=== PATIENT | female | born 1930 | race Asian ===

== ENCOUNTER 2016-06-23 15:36 | Emergency (ER) | payer OTHER ==
[~2016-06-23] VITALS: Ht 152.4 cm; Wt 46.4 kg
[~2016-06-23 15:36] MED LIST: AMLO-511 PO; CARB-101 PO; DSS100 PO; GABA-529 PO; HYDR-3965 PO; MULT1TAB PO; PRAM0.754 PO; ROSU20 PO; VALS160T2 PO
[2016-06-23] MEDS ORDERED: TraMADol HCL 50 MG TABLET PO ONE (19:00)
[2016-06-23 20:33] VITALS: BP 115/62
== END 2016-06-23 20:38 | disposition home or self-care (01) ==
LOC: EMS 15:41
DX: M17.12 Unilateral primary osteoarthritis, left knee (principal); I10 Essential (primary) hypertension; E78.00 Pure hypercholesterolemia, unspecified
CPT/HCPCS: 99283

== ENCOUNTER 2016-07-24 07:51 | Emergency (ER) | payer OTHER ==
[~2016-07-24] VITALS: Ht 152.4 cm; Wt 44.1 kg
[2016-07-24 08:18] VITALS: BP 140/69
[2016-07-24] MEDS ORDERED: TraMADol HCL 50 MG TABLET PO ONE (08:45)
[2016-07-24] MEDS ORDERED: KETOROLAC TROMETHAMINE 60 MG/2 ML VIAL IM ONE (08:45)
== END 2016-07-24 09:09 | disposition home or self-care (01) ==
LOC: EMS 07:54
DX: M17.12 Unilateral primary osteoarthritis, left knee (principal); I10 Essential (primary) hypertension; E78.00 Pure hypercholesterolemia, unspecified; Z76.0 Encounter for issue of repeat prescription
CPT/HCPCS: 96372; 99283; J1885

== ENCOUNTER → 2016-08-06 | Outpatient (CLI) | payer OTHER ==
[~2016-08-06] MED LIST changes: -AMLO-511 PO; -PRAM0.754 PO; -ROSU20 PO
== END | disposition home or self-care (01) ==
LOC: RADPV 08:56
PROVIDERS: ATTEND Internal Medicine
DX: M17.0 Bilateral primary osteoarthritis of knee (principal); M25.461 Effusion, right knee

== ENCOUNTER 2016-08-19 18:42 | Emergency (ER) | payer OTHER ==
[~2016-08-19] VITALS: Ht 152.4 cm; Wt 43.6 kg
[2016-08-19 21:37] VITALS: BP 143/77
[2016-08-19] MEDS ORDERED: OxyCODONE HCL/ACETAMINOPHEN 5-325 MG TABLET PO ONE (21:45)
== END 2016-08-19 22:53 | disposition home or self-care (01) ==
LOC: EMS 18:42
DX: M79.605 Pain in left leg (principal); I10 Essential (primary) hypertension; E78.00 Pure hypercholesterolemia, unspecified
CPT/HCPCS: 93971; 99284

== ENCOUNTER 2016-10-02 01:01 | Emergency (ER) | payer OTHER ==
[~2016-10-02] VITALS: Ht 152.4 cm; Wt 50.9 kg
[~2016-10-02 01:01] MED LIST changes: -HYDR-3965 PO
[2016-10-02 03:17] LABS: ADD UA MICROSCOPIC NO; APPEARANCE,URINE CLEAR (CLEAR); GLUCOSE, URINE (UA) NEGATIVE (NEGATIVE); KETONES,URINE NEGATIVE (NEGATIVE); LEUKOCYTE ESTERASE ,URINE NEGATIVE (NEGATIVE); OCCULT BLOOD,URINE NEGATIVE (NEGATIVE); PH,URINE 5.5 (5.0-8.0); PROTEIN,URINE POS 1+ (NEGATIVE)
[2016-10-02 03:26] LABS: BASOPHILS % (AUTO) 0.2 % (0.0-2.0); EOSINOPHILS % (AUTO) 0.2 % (1.0-6.0); HEMATOCRIT 27.8 % (36-46); HEMOGLOBIN 9.2 g/dL (12.0-16.0); LYMPHOCYTES # (AUTO) 0.9 K/uL (1.0-4.8); MEAN CORPUSCULAR HEMOGLOBIN 28.3 pg (26.0-34.0); MEAN CORPUSCULAR HGB CONC 33.1 G/dL (31.0-37.0); MEAN CORPUSCULAR VOLUME 86 fL (80-100); MONOCYTES # (AUTO) 0.5 K/uL (0.1-1.0); MONOCYTES % (AUTO) 4.4 % (2.0-9.0); NEUTROPHILS # (AUTO) 10.9 K/uL (1.8-7.7); PLATELET COUNT (AUTO) 383 K/uL (150-450); RED BLOOD CELL COUNT(AUTO) 3.24 MIL/uL (4.00-5.20); RED CELL DISTRIBUTION WIDTH 18.4 % (11.5-14.5); WHITE BLOOD COUNT (AUTO) 12.3 K/uL (4.5-11.0)
[2016-10-02 03:30] LABS: NEUTROPHILS % (AUTO) 88.2 % (40.0-70.0)
[2016-10-02 03:36] LABS: ANION GAP 8 mmol/L (8-16); CALCIUM, TOTAL 9.3 mg/dL (8.8-10.5); CARBON DIOXIDE 26 mmol/L (22-29); CHLORIDE 101 mmol/L (98-107); CREATININE 0.93 mg/dL (0.60-1.30); GLOMERULAR FILTR. RATE CALC 57 mL/min (>60); POTASSIUM 3.8 mmol/L (3.5-5.1); SODIUM SERUM 135 mmol/L (136-145); UREA NITROGEN, BLOOD 22 mg/dL (7-18)
[2016-10-02 03:42] LABS: ALANINE AMINOTRANSFERASE 8 U/L (12-78); ASPARTATE AMINOTRANSFERASE 32 U/L (15-37); BILIRUBIN,TOTAL 0.4 mg/dL (0.1-1.0); CREATINE KINASE, TOTAL 39 U/L (26-192); TOTAL PROTEIN, SERUM 7.7 g/dL (6.4-8.2)
[2016-10-02] MEDS ORDERED: ACETAMINOPHEN 1000 MG/ISO-OSM 100 ML IV ONE (03:45)
[2016-10-02] MEDS ORDERED: SODIUM CHLORIDE 0.9% 1,000 ML IV ONE ×2 (03:45→04:45)
[2016-10-02 03:48] LABS: B-TYPE NATRIURETIC PEPTIDE 27 pg/mL (0-100)
[2016-10-02] MEDS ORDERED: MORPHINE SULFATE 4 MG/ML SYRINGE IVP ONE (04:00)
[2016-10-02] MEDS ORDERED: ONDANSETRON HCL 4 MG/2 ML VIAL IVP ONE (04:00)
[2016-10-02 05:55] VITALS: BP 121/67
== END 2016-10-02 05:59 | disposition home or self-care (01) ==
LOC: EMS 01:03
DX: R10.84 Generalized abdominal pain (principal); R19.7 Diarrhea, unspecified; E78.00 Pure hypercholesterolemia, unspecified; I10 Essential (primary) hypertension
CPT/HCPCS: 36415; 71010; 80053; 80307; 81003; 82550; 83880; 84484; 85025; 93005; 96361; 96374; 96375; 99285; J0131; J2270; J2405; J7030

== ENCOUNTER 2017-01-14 18:41 | Emergency (ER) | payer OTHER ==
[~2017-01-14] VITALS: Ht 142.2 cm; Wt 42.7 kg
[2017-01-14 19:12] LABS: BASOPHILS % (AUTO) 1.1 % (0.0-2.0); EOSINOPHILS % (AUTO) 2.9 % (1.0-6.0); HEMATOCRIT 29.3 % (36-46); HEMOGLOBIN 9.8 g/dL (12.0-16.0); LYMPHOCYTES # (AUTO) 1.6 K/uL (1.0-4.8); LYMPHOCYTES % (AUTO) 25.8 % (22.0-44.0); MEAN CORPUSCULAR HEMOGLOBIN 28.9 pg (26.0-34.0); MEAN CORPUSCULAR HGB CONC 33.3 G/dL (31.0-37.0); MEAN CORPUSCULAR VOLUME 87 fL (80-100); MONOCYTES # (AUTO) 0.5 K/uL (0.1-1.0); MONOCYTES % (AUTO) 8.9 % (2.0-9.0); NEUTROPHILS # (AUTO) 3.7 K/uL (1.8-7.7); NEUTROPHILS % (AUTO) 61.3 % (40.0-70.0); PLATELET COUNT (AUTO) 422 K/uL (150-450); RED BLOOD CELL COUNT(AUTO) 3.38 MIL/uL (4.00-5.20); RED CELL DISTRIBUTION WIDTH 18.8 % (11.5-14.5); WHITE BLOOD COUNT (AUTO) 6.1 K/uL (4.5-11.0)
[2017-01-14 19:35] LABS: RBC MORPHOLOGY COMMENT ABNORMAL RBC MORPH
[2017-01-14 20:33] LABS: ANION GAP 10 mmol/L (8-16); CALCIUM, TOTAL 9.4 mg/dL (8.8-10.5); CARBON DIOXIDE 27 mmol/L (22-29); CHLORIDE 104 mmol/L (98-107); CREATININE 0.72 mg/dL (0.60-1.30); GLOMERULAR FILTR. RATE CALC > 60 mL/min (>60); POTASSIUM 4.2 mmol/L (3.5-5.1); SODIUM SERUM 141 mmol/L (136-145); UREA NITROGEN, BLOOD 21 mg/dL (7-18)
[2017-01-14 20:41] LABS: ALANINE AMINOTRANSFERASE 25 U/L (12-78); ALBUMIN 3.2 g/dL (3.4-5.0); ASPARTATE AMINOTRANSFERASE 27 U/L (15-37); BILIRUBIN,TOTAL 0.2 mg/dL (0.1-1.0); CREATINE KINASE, TOTAL 43 U/L (26-192); TOTAL PROTEIN, SERUM 8.4 g/dL (6.4-8.2)
[2017-01-14] MEDS ORDERED: ACETAMINOPHEN 325 MG TABLET PO ONE (21:00)
[2017-01-14 21:30] LABS: APPEARANCE,URINE CLOUDY (CLEAR); GLUCOSE, URINE (UA) NEGATIVE (NEGATIVE); KETONES,URINE NEGATIVE (NEGATIVE); LEUKOCYTE ESTERASE ,URINE TRACE (NEGATIVE); OCCULT BLOOD,URINE TRACE (NEGATIVE); PROTEIN,URINE NEGATIVE (NEGATIVE)
[2017-01-14 21:34] LABS: ADD UA MICROSCOPIC YES
[2017-01-14 21:43] LABS: RBC,URINE 0-2 /HPF (0-2); SQUAMOUS EPITHELIAL CELL,UR Few /LPF (None Seen)
[2017-01-14 22:00] VITALS: BP 133/72
[2017-03-01] MEDS ORDERED: TYL3B PO (07:53)
[2017-03-01] MEDS ORDERED: DSS100 PO (07:53)
[2017-03-01] MEDS ORDERED: TRAM50TA4 PO (07:53)
[2017-03-01] MEDS ORDERED: AMLO-511 PO (07:53)
[2017-03-01] MEDS ORDERED: BENZ200C53 PO (07:53)
[2017-03-01] MEDS ORDERED: QUET25TA PO (07:53)
[2017-03-01] MEDS ORDERED: DULO30CA2 PO (07:53)
[2017-03-01] MEDS ORDERED: PRAM0.258 PO (07:53)
[2017-03-01] MEDS ORDERED: MONT10TA21 PO (07:53)
[2017-03-01] MEDS ORDERED: VALS160T2 PO (07:53)
[2017-03-01] MEDS ORDERED: CARB-38 PO (07:53)
== END 2017-01-14 22:34 | disposition home or self-care (01) ==
LOC: EMS 18:43
DX: G89.29 Other chronic pain (principal); M25.462 Effusion, left knee; N39.0 Urinary tract infection, site not specified; E78.00 Pure hypercholesterolemia, unspecified; I10 Essential (primary) hypertension; M19.90 Unspecified osteoarthritis, unspecified site
CPT/HCPCS: 70450; 87086; 93005; 93971; 99285

== ENCOUNTER 2017-02-13 07:42 | Emergency (ER) | payer MEDICARE, OTHER ==
[~2017-02-13] VITALS: Ht 152.4 cm; Wt 45.5 kg
[2017-02-13] MEDS ORDERED: HYDROCODONE/ACETAMINOPHEN 5-325 MG TABLET PO ONE (11:00)
[2017-02-13] MEDS ORDERED: LIDOCAINE HCL/PF 1% 2 ML VIAL IM ONE (12:15)
[2017-02-13] MEDS ORDERED: CefTRIAXone SODIUM 1 GM/VIAL IM ONE (12:15)
[2017-02-13 14:39] VITALS: BP 145/88
[2017-03-01] MEDS ORDERED: QUET25TA PO (07:53)
[2017-03-01] MEDS ORDERED: PRAM0.258 PO (07:53)
[2017-03-01] MEDS ORDERED: CARB-38 PO (07:53)
[2017-03-01] MEDS ORDERED: DULO30CA2 PO (07:53)
[2017-03-01] MEDS ORDERED: DSS100 PO (07:53)
[2017-03-01] MEDS ORDERED: AMLO-511 PO (07:53)
[2017-03-01] MEDS ORDERED: TYL3B PO (07:53)
[2017-03-01] MEDS ORDERED: TRAM50TA4 PO (07:53)
[2017-03-01] MEDS ORDERED: VALS160T2 PO (07:53)
[2017-03-01] MEDS ORDERED: MONT10TA21 PO (07:53)
[2017-03-01] MEDS ORDERED: BENZ200C53 PO (07:53)
[2017-03-30] MEDS ORDERED: ACET-784 PO (11:30)
[2017-03-30] MEDS ORDERED: BENZ200C53 PO (20:54)
[2017-03-30] MEDS ORDERED: QUET25TA PO (20:54)
[2017-03-30] MEDS ORDERED: CARB-38 PO (20:54)
[2017-03-30] MEDS ORDERED: TRAM50TA4 PO (20:54)
[2017-03-30] MEDS ORDERED: MONT10TA21 PO (20:54)
[2017-03-30] MEDS ORDERED: PRAM0.258 PO (20:54)
[2017-03-30] MEDS ORDERED: VALS160T2 PO (20:54)
[2017-03-30] MEDS ORDERED: TYL3B PO (20:54)
[2017-03-30] MEDS ORDERED: AMLO-511 PO (20:54)
[2017-03-30] MEDS ORDERED: DSS100 PO (20:54)
[2017-03-30] MEDS ORDERED: DULO30CA2 PO (20:54)
== END 2017-02-13 14:56 | disposition home or self-care (01) ==
LOC: EMS 07:44
DX: S83.92XA Sprain of unspecified site of left knee, initial encounter (principal); N39.0 Urinary tract infection, site not specified; M54.5 Low back pain; M25.552 Pain in left hip; M19.90 Unspecified osteoarthritis, unspecified site; I10 Essential (primary) hypertension; E78.00 Pure hypercholesterolemia, unspecified; G89.29 Other chronic pain; X58.XXXA Exposure to other specified factors, initial encounter; Y93.89 Activity, other specified; Y92.89 Other specified places as the place of occurrence of the external cause; Y99.8 Other external cause status
CPT/HCPCS: 72100; 72131; 73503; 73562; 81002; 96372; 99284; J0696; J3490

== ENCOUNTER 2017-02-14 13:29 | Emergency (ER) | payer MEDICARE, OTHER ==
[~2017-02-14] VITALS: Ht 152.4 cm; Wt 45.5 kg
[2017-02-14 14:24] VITALS: BP 142/109
[2017-03-01] MEDS ORDERED: AMLO-511 PO (07:53)
[2017-03-01] MEDS ORDERED: VALS160T2 PO (07:53)
[2017-03-01] MEDS ORDERED: MONT10TA21 PO (07:53)
[2017-03-01] MEDS ORDERED: DSS100 PO (07:53)
[2017-03-01] MEDS ORDERED: TRAM50TA4 PO (07:53)
[2017-03-01] MEDS ORDERED: PRAM0.258 PO (07:53)
[2017-03-01] MEDS ORDERED: DULO30CA2 PO (07:53)
[2017-03-01] MEDS ORDERED: BENZ200C53 PO (07:53)
[2017-03-01] MEDS ORDERED: QUET25TA PO (07:53)
[2017-03-01] MEDS ORDERED: CARB-38 PO (07:53)
[2017-03-01] MEDS ORDERED: TYL3B PO (07:53)
== END 2017-02-14 16:17 | disposition left against medical advice (07) ==
LOC: EMS 13:55
DX: M25.559 Pain in unspecified hip (principal); I10 Essential (primary) hypertension; E78.00 Pure hypercholesterolemia, unspecified; G89.29 Other chronic pain; Z53.21 Procedure and treatment not carried out due to patient leaving prior to being seen by health care provider

== ENCOUNTER 2017-02-21 10:38 | Emergency (ER) | payer OTHER, MEDICARE ==
[~2017-02-21] VITALS: Ht 149.9 cm; Wt 59.1 kg
[2017-02-21] MEDS ORDERED: TraMADol HCL 50 MG TABLET PO ONE ×2 (11:45→13:00)
[2017-02-21 12:12] LABS: APPEARANCE,URINE CLEAR (CLEAR); BILIRUBIN,URINE NEGATIVE (NEGATIVE); GLUCOSE, URINE (UA) NEGATIVE (NEGATIVE); KETONES,URINE NEGATIVE (NEGATIVE); LEUKOCYTE ESTERASE ,URINE NEGATIVE (NEGATIVE); NITRATE,URINE NEGATIVE (NEGATIVE); OCCULT BLOOD,URINE NEGATIVE (NEGATIVE); PH,URINE 5.5 (5.0-8.0); PROTEIN,URINE NEGATIVE (NEGATIVE); UROBILINOGEN,URINE 0.2 mg/dL (<=1.0)
[2017-02-21 13:20] VITALS: BP 116/82
[2017-03-01] MEDS ORDERED: DSS100 PO (07:53)
[2017-03-01] MEDS ORDERED: TRAM50TA4 PO (07:53)
[2017-03-01] MEDS ORDERED: DULO30CA2 PO (07:53)
[2017-03-01] MEDS ORDERED: MONT10TA21 PO (07:53)
[2017-03-01] MEDS ORDERED: CARB-38 PO (07:53)
[2017-03-01] MEDS ORDERED: VALS160T2 PO (07:53)
[2017-03-01] MEDS ORDERED: QUET25TA PO (07:53)
[2017-03-01] MEDS ORDERED: PRAM0.258 PO (07:53)
[2017-03-01] MEDS ORDERED: TYL3B PO (07:53)
[2017-03-01] MEDS ORDERED: AMLO-511 PO (07:53)
[2017-03-01] MEDS ORDERED: BENZ200C53 PO (07:53)
== END 2017-02-21 13:28 | disposition home or self-care (01) ==
LOC: EMS 10:41
DX: M54.5 Low back pain (principal); G89.29 Other chronic pain; I10 Essential (primary) hypertension; E78.00 Pure hypercholesterolemia, unspecified
CPT/HCPCS: 99283

== ENCOUNTER 2017-04-05 21:08 | Emergency (ER) | payer OTHER ==
[~2017-04-05] VITALS: Ht 147.3 cm; Wt 56.8 kg
[~2017-04-05 21:08] MED LIST changes: +ACET-784 PO; +AMLO-511 PO; +BENZ200C53 PO; -CARB-101 PO; +CARB-38 PO; +DULO30CA2 PO; -GABA-529 PO; +MONT10TA21 PO; -MULT1TAB PO; +PRAM0.258 PO; +QUET25TA PO; +TRAM50TA4 PO; +TYL3B PO
[2017-04-05] MEDS ORDERED: HYDR-3290 PO (21:50)
[2017-04-05] MEDS ORDERED: PRAM1.5T7 PO (21:50)
[2017-04-05] MEDS ORDERED: BACL10TA PO (21:50)
[2017-04-05] MEDS ORDERED: VALS320T16 PO (21:50)
[2017-04-05] MEDS ORDERED: MONT10TA21 PO (21:50)
[2017-04-06] MEDS: HYDROCODONE/ACETAMINOPHEN 5-325 MG TABLET PO ONE ×2 (00:18→06:03)
[2017-04-06] MEDS: BACLOFEN 10 MG TABLET PO ONE (00:19)
[2017-04-06 06:13] VITALS: BP 123/67
== END 2017-04-06 00:45 | disposition home or self-care (01) ==
LOC: EMS 21:09
DX: G89.29 Other chronic pain (principal); M54.5 Low back pain; G20 Parkinson's disease; Z91.14 Patient's other noncompliance with medication regimen
CPT/HCPCS: 99284

== ENCOUNTER 2017-05-19 20:32 | Emergency (ER) | payer OTHER ==
[~2017-05-19] VITALS: Ht 149.9 cm; Wt 45.5 kg
[~2017-05-19 20:32] MED LIST changes: -ACET-784 PO; -AMLO-511 PO; +BACL10TA PO; -BENZ200C53 PO; -CARB-38 PO; -DSS100 PO; -DULO30CA2 PO; +HYDR-3290 PO; -PRAM0.258 PO; +PRAM1.5T7 PO; -QUET25TA PO; -TRAM50TA4 PO; -TYL3B PO; -VALS160T2 PO; +VALS320T16 PO
[2017-05-19] MEDS ORDERED: HYDROCODONE/ACETAMINOPHEN 5-325 MG TABLET PO ONE (22:00)
[2017-05-19 22:22] VITALS: BP 105/61
== END 2017-05-19 22:51 | disposition home or self-care (01) ==
LOC: EMS 20:33
DX: M16.0 Bilateral primary osteoarthritis of hip (principal)
CPT/HCPCS: 99283

== ENCOUNTER 2017-05-26 23:45 | Emergency (ER) | payer OTHER ==
[~2017-05-26] VITALS: Ht 152.4 cm; Wt 44.1 kg
[2017-05-27 00:30] LABS: BASOPHILS % (AUTO) 0.4 % (0.0-2.0); EOSINOPHILS % (AUTO) 0.7 % (1.0-6.0); HEMATOCRIT 28.6 % (36-46); HEMOGLOBIN 9.3 g/dL (12.0-16.0); LYMPHOCYTES # (AUTO) 2.4 K/uL (1.0-4.8); LYMPHOCYTES % (AUTO) 26.1 % (22.0-44.0); MEAN CORPUSCULAR HEMOGLOBIN 29.2 pg (26.0-34.0); MEAN CORPUSCULAR HGB CONC 32.4 G/dL (31.0-37.0); MEAN CORPUSCULAR VOLUME 90 fL (80-100); MONOCYTES # (AUTO) 0.7 K/uL (0.1-1.0); MONOCYTES % (AUTO) 8.2 % (2.0-9.0); NEUTROPHILS # (AUTO) 5.9 K/uL (1.8-7.7); NEUTROPHILS % (AUTO) 64.6 % (40.0-70.0); PLATELET COUNT (AUTO) 342 K/uL (150-450); RED BLOOD CELL COUNT(AUTO) 3.17 MIL/uL (4.00-5.20); RED CELL DISTRIBUTION WIDTH 21.8 % (11.5-14.5)
[2017-05-27 00:38] LABS: ANION GAP 6 mmol/L (8-16); CARBON DIOXIDE 26 mmol/L (22-29); CHLORIDE 105 mmol/L (98-107); CREATININE 0.76 mg/dL (0.60-1.30); GLOMERULAR FILTR. RATE CALC > 60 mL/min (>60); GLUCOSE,RANDOM 114 mg/dL (70-110); POTASSIUM 4.1 mmol/L (3.5-5.1); SODIUM SERUM 137 mmol/L (136-145); UREA NITROGEN, BLOOD 21 mg/dL (7-18)
[2017-05-27 00:40] LABS: INR 0.9 (0.9-1.1); PROTHROMBIN TIME 9.5 SEC (9.4-11.6)
[2017-05-27 00:44] LABS: ALANINE AMINOTRANSFERASE 12 U/L (12-78); ALBUMIN 3.2 g/dL (3.4-5.0); ALKALINE PHOSPHATASE 121 U/L (46-116); ASPARTATE AMINOTRANSFERASE 27 U/L (15-37); BILIRUBIN,TOTAL 0.2 mg/dL (0.1-1.0); CREATINE KINASE, TOTAL 29 U/L (26-192); TOTAL PROTEIN, SERUM 7.4 g/dL (6.4-8.2)
[2017-05-27 01:14] LABS: APPEARANCE,URINE CLEAR (CLEAR); BILIRUBIN,URINE NEGATIVE (NEGATIVE); GLUCOSE, URINE (UA) NEGATIVE (NEGATIVE); KETONES,URINE NEGATIVE (NEGATIVE); LEUKOCYTE ESTERASE ,URINE SMALL (NEGATIVE); NITRATE,URINE NEGATIVE (NEGATIVE); OCCULT BLOOD,URINE NEGATIVE (NEGATIVE); PROTEIN,URINE NEGATIVE (NEGATIVE); UROBILINOGEN,URINE 0.2 mg/dL (<=1.0)
[2017-05-27] MEDS ORDERED: FentaNYL CITRATE-PF 100 MCG/2 ML VIAL IVP ONE (01:15)
[2017-05-27] MEDS ORDERED: ONDANSETRON HCL 4 MG/2 ML VIAL IVP PRN (01:15)
[2017-05-27] MEDS ORDERED: 0.9% SODIUM CHLORIDE 10 ML SYRINGE IVP PRN (01:15)
[2017-05-27] MEDS ORDERED: ACETAMINOPHEN 325 MG TABLET PO PRN (01:15)
[2017-05-27 01:19] LABS: AMPHET/METH SCREEN,URINE NEGATIVE (NEGATIVE); BARBITURATE SCREEN, URINE NEGATIVE (NEGATIVE); BENZODIAZEPINES SCREEN,URINE NEGATIVE (NEGATIVE); CANNABINOID SCREEN,URINE NEGATIVE (NEGATIVE); COCAINE SCREEN,URINE NEGATIVE (NEGATIVE); METHADONE SCREEN, URINE NEGATIVE (NEGATIVE); OPIATE SCREEN,URINE NEGATIVE (NEGATIVE)
[2017-05-27 01:21] LABS: PHENCYCLIDINE SCREEN,URINE NEGATIVE (NEGATIVE)
[2017-05-27] MEDS ORDERED: FentaNYL CITRATE-PF 100 MCG/2 ML VIAL IM ONE (01:30)
[2017-05-27 01:34] LABS: BACTERIA,URINE Rare /HPF (None Seen); RBC,URINE 0-2 /HPF (0-2); SQUAMOUS EPITHELIAL CELL,UR Rare /LPF (None Seen)
[2017-05-27 01:36] VITALS: BP 118/57
[2017-05-27] MEDS ORDERED: ALBUTEROL SULFATE 2.5 MG/0.5 ML NEB SOLUTION NEB SCH (03:00)
[2017-05-27] MEDS ORDERED: IPRATROPIUM BROMIDE 0.5 MG/2.5 ML NEB SOLUTION NEB SCH (03:00)
== END 2017-05-27 01:39 | disposition home or self-care (01) ==
LOC: EMS 23:47
DX: M19.90 Unspecified osteoarthritis, unspecified site (principal); R53.1 Weakness
CPT/HCPCS: 36415; 71045; 80053; 80307; 81001; 82550; 84484; 85025; 85610; 85730; 93005; 96372; 99285; J3010

== ENCOUNTER 2017-06-15 11:26 | Inpatient (IN) | payer MEDICARE, OTHER ==
[2017-06-15] VITALS (11 sets, daily range): BP systolic 91–126; BP diastolic 40–63
[~2017-06-15] VITALS: Ht 149.9 cm; Wt 42.6 kg
[2017-06-15 11:37] LABS: GLUCOSE,POINT OF CARE 172 MG/DL (70-110)
[2017-06-15] MEDS ORDERED: SODIUM CHLORIDE 0.9% 1,000 ML IV ONE ×2 (11:45→11:49)
[2017-06-15 12:15] LABS: BASOPHILS % (AUTO) 0.3 % (0.0-2.0); EOSINOPHILS % (AUTO) 0.2 % (1.0-6.0); LYMPHOCYTES # (AUTO) 2.1 K/uL (1.0-4.8); LYMPHOCYTES % (AUTO) 14.6 % (22.0-44.0); MEAN CORPUSCULAR HEMOGLOBIN 29.9 pg (26.0-34.0); MEAN CORPUSCULAR HGB CONC 33.2 G/dL (31.0-37.0); MEAN CORPUSCULAR VOLUME 90 fL (80-100); MONOCYTES # (AUTO) 0.7 K/uL (0.1-1.0); MONOCYTES % (AUTO) 4.8 % (2.0-9.0); NEUTROPHILS # (AUTO) 11.6 K/uL (1.8-7.7); NEUTROPHILS % (AUTO) 80.1 % (40.0-70.0); PLATELET COUNT (AUTO) 297 K/uL (150-450); RED BLOOD CELL COUNT(AUTO) 1.63 MIL/uL (4.00-5.20)
[2017-06-15 12:17] LABS: PROTHROMBIN TIME 10.4 SEC (9.4-11.6)
[2017-06-15 12:19] LABS: ANION GAP 6 mmol/L (8-16); CALCIUM, TOTAL 8.2 mg/dL (8.8-10.5); CARBON DIOXIDE 24 mmol/L (22-29); CHLORIDE 102 mmol/L (98-107); CREATININE 1.31 mg/dL (0.60-1.30); GLOMERULAR FILTR. RATE CALC 38 mL/min (>60); GLUCOSE,RANDOM 152 mg/dL (70-110); HEMATOCRIT 14.6 % (36-46); HEMOGLOBIN 4.9 g/dL (12.0-16.0); POTASSIUM 5.8 mmol/L (3.5-5.1); SODIUM SERUM 132 mmol/L (136-145); UREA NITROGEN, BLOOD 59 mg/dL (7-18)
[2017-06-15] MEDS ORDERED: PANTOPRAZOLE SODIUM 40 MG/VIAL IVP ONE (12:30)
[2017-06-15] MEDS ORDERED: PANTOPRAZOLE SODIUM 80 MG in SODIUM CHLORIDE 0.9% 100 ML IV SCH (12:30)
[2017-06-15 12:33] LABS: B-TYPE NATRIURETIC PEPTIDE 8 pg/mL (0-100)
[2017-06-15 12:34] LABS: ALANINE AMINOTRANSFERASE 12 U/L (12-78); ALBUMIN 2.1 g/dL (3.4-5.0); ALKALINE PHOSPHATASE 105 U/L (46-116); ASPARTATE AMINOTRANSFERASE 18 U/L (15-37); BILIRUBIN,TOTAL 0.1 mg/dL (0.1-1.0); LIPASE 160 U/L (73-393); TOTAL PROTEIN, SERUM 5.9 g/dL (6.4-8.2)
[2017-06-15 12:38] LABS: LACTIC ACID 2.6 mmol/L (0.4-2.0)
[2017-06-15 12:51] LABS: PLATELET MORPHOLOGY COMMENT LARGE PLTS PRESENT
[2017-06-15] MEDS ORDERED: 0.9% SODIUM CHLORIDE 10 ML SYRINGE IVP PRN (13:45)
[2017-06-15] MEDS ORDERED: ONDANSETRON HCL 4 MG/2 ML VIAL IVP PRN ×2 (13:45→21:00)
[2017-06-15] MEDS ORDERED: ACETAMINOPHEN 325 MG TABLET PO PRN (13:45)
[2017-06-15 13:47] LABS: GLUCOSE,POINT OF CARE 103 MG/DL (70-110)
[2017-06-15] MEDS ORDERED: CIPROFLOXACIN 400 MG/D5% WATER 200 ML IV ONE (14:00)
[2017-06-15] MEDS ORDERED: FentaNYL CITRATE-PF 100 MCG/2 ML VIAL IVP ONE (14:00)
[2017-06-15] MEDS ORDERED: MetroNIDAZOLE 250 MG TABLET PO ONE (14:00)
[2017-06-15 15:05] LABS: APPEARANCE,URINE CLEAR (CLEAR); BILIRUBIN,URINE NEGATIVE (NEGATIVE); GLUCOSE, URINE (UA) NEGATIVE (NEGATIVE); KETONES,URINE NEGATIVE (NEGATIVE); LEUKOCYTE ESTERASE ,URINE NEGATIVE (NEGATIVE); NITRATE,URINE NEGATIVE (NEGATIVE); OCCULT BLOOD,URINE NEGATIVE (NEGATIVE); PROTEIN,URINE NEGATIVE (NEGATIVE); UROBILINOGEN,URINE 0.2 mg/dL (<=1.0)
[2017-06-15 15:19] LABS: BACTERIA,URINE None Seen /HPF (None Seen); RBC,URINE None Seen /HPF (0-2); SQUAMOUS EPITHELIAL CELL,UR Rare /LPF (None Seen); WBC,URINE 0-2 /HPF (0-5)
[2017-06-15] MEDS ORDERED: DEXTROSE 5%-0.45% SODIUM CHL 1,000 ML IV SCH (16:30)
[2017-06-15] MEDS ORDERED: INSULIN REGULAR, HUMAN 100 UNITS/ML IVP ONE (16:30)
[2017-06-15] MEDS ORDERED: DEXTROSE 50%-WATER 25 GM/50 ML SYRINGE IVP ONE (16:30)
[2017-06-15] MEDS ORDERED: SODIUM CHLORIDE 0.9% 250 ML IV ONE (16:36)
[2017-06-15 20:06] LABS: BASOPHILS % (AUTO) 0.3 % (0.0-2.0); EOSINOPHILS % (AUTO) 0.5 % (1.0-6.0); HEMATOCRIT 22.5 % (36-46); HEMOGLOBIN 7.6 g/dL (12.0-16.0); LYMPHOCYTES # (AUTO) 2.9 K/uL (1.0-4.8); LYMPHOCYTES % (AUTO) 20.7 % (22.0-44.0); MEAN CORPUSCULAR HEMOGLOBIN 29.9 pg (26.0-34.0); MEAN CORPUSCULAR HGB CONC 33.9 G/dL (31.0-37.0); MEAN CORPUSCULAR VOLUME 88 fL (80-100); MONOCYTES # (AUTO) 1.2 K/uL (0.1-1.0); MONOCYTES % (AUTO) 8.8 % (2.0-9.0); NEUTROPHILS # (AUTO) 9.6 K/uL (1.8-7.7); NEUTROPHILS % (AUTO) 69.7 % (40.0-70.0); PLATELET COUNT (AUTO) 222 K/uL (150-450); RED BLOOD CELL COUNT(AUTO) 2.55 MIL/uL (4.00-5.20); RED CELL DISTRIBUTION WIDTH 16.3 % (11.5-14.5)
[2017-06-15] MEDS ORDERED: PROMETH/PHENYLEPHRINE/CODEINE 5 ML ORAL.SYG PO PRN (20:15)
[2017-06-15 20:18] LABS: ALANINE AMINOTRANSFERASE 13 U/L (12-78); ALBUMIN 1.8 g/dL (3.4-5.0); ALKALINE PHOSPHATASE 91 U/L (46-116); ANION GAP 8 mmol/L (8-16); ASPARTATE AMINOTRANSFERASE 20 U/L (15-37); BILIRUBIN,TOTAL 0.4 mg/dL (0.1-1.0); CALCIUM, TOTAL 7.5 mg/dL (8.8-10.5); CARBON DIOXIDE 21 mmol/L (22-29); CHLORIDE 109 mmol/L (98-107); CREATININE 0.84 mg/dL (0.60-1.30); GLOMERULAR FILTR. RATE CALC > 60 mL/min (>60); GLUCOSE,RANDOM 80 mg/dL (70-110); POTASSIUM 4.9 mmol/L (3.5-5.1); SODIUM SERUM 138 mmol/L (136-145); TOTAL PROTEIN, SERUM 5.1 g/dL (6.4-8.2); UREA NITROGEN, BLOOD 42 mg/dL (7-18)
[2017-06-15] MEDS: PANTOPRAZOLE SODIUM 80 MG in SODIUM CHLORIDE 0.9% 100 ML IV SCH (20:42)
[2017-06-15] MEDS: PROMETHAZINE HCL/CODEINE 6.25-10MG/5ML SYRUP UDCUP PO PRN (21:26)
[2017-06-15] MEDS: SODIUM CHLORIDE 0.45% 1,000 ML IV SCH (21:43)
[2017-06-16] VITALS (8 sets, daily range): BP systolic 94–138; BP diastolic 50–76
[2017-06-16] MEDS: MORPHINE SULFATE 4 MG/ML SYRINGE IVP PRN ×3 (00:22→20:15)
[2017-06-16 04:59] LABS: BASOPHILS % (AUTO) 0.6 % (0.0-2.0); EOSINOPHILS % (AUTO) 1.7 % (1.0-6.0); HEMOGLOBIN 7.2 g/dL (12.0-16.0); LYMPHOCYTES % (AUTO) 21.8 % (22.0-44.0); MEAN CORPUSCULAR HEMOGLOBIN 30.7 pg (26.0-34.0); MEAN CORPUSCULAR HGB CONC 35.2 G/dL (31.0-37.0); MEAN CORPUSCULAR VOLUME 87 fL (80-100); MONOCYTES # (AUTO) 0.7 K/uL (0.1-1.0); MONOCYTES % (AUTO) 7.7 % (2.0-9.0); NEUTROPHILS # (AUTO) 6.4 K/uL (1.8-7.7); NEUTROPHILS % (AUTO) 68.2 % (40.0-70.0); PLATELET COUNT (AUTO) 215 K/uL (150-450); RED BLOOD CELL COUNT(AUTO) 2.36 MIL/uL (4.00-5.20); RED CELL DISTRIBUTION WIDTH 16.3 % (11.5-14.5)
[2017-06-16 05:10] LABS: ALANINE AMINOTRANSFERASE 17 U/L (12-78); ALBUMIN 1.6 g/dL (3.4-5.0); ALKALINE PHOSPHATASE 81 U/L (46-116); ANION GAP 3 mmol/L (8-16); ASPARTATE AMINOTRANSFERASE 16 U/L (15-37); BILIRUBIN,TOTAL 0.2 mg/dL (0.1-1.0); CALCIUM, TOTAL 7.7 mg/dL (8.8-10.5); CARBON DIOXIDE 24 mmol/L (22-29); CHLORIDE 110 mmol/L (98-107); CREATININE 0.75 mg/dL (0.60-1.30); GLOMERULAR FILTR. RATE CALC > 60 mL/min (>60); GLUCOSE,RANDOM 94 mg/dL (70-110); POTASSIUM 5.3 mmol/L (3.5-5.1); SODIUM SERUM 137 mmol/L (136-145); TOTAL PROTEIN, SERUM 4.8 g/dL (6.4-8.2); UREA NITROGEN, BLOOD 31 mg/dL (7-18)
[2017-06-16 06:07] LABS: HEMATOCRIT 20.6 % (36-46)
[2017-06-16] MEDS: PANTOPRAZOLE SODIUM 80 MG in SODIUM CHLORIDE 0.9% 100 ML IV SCH ×2 (06:45→15:06)
[2017-06-16] MEDS ORDERED: SODIUM CHLORIDE 0.9% 1,000 ML IV ONE (07:36)
[2017-06-16] MEDS: SODIUM CHLORIDE 0.45% 1,000 ML IV SCH ×2 (08:38→17:34)
[2017-06-16 10:26] LABS: BASOPHILS % (AUTO) 0.6 % (0.0-2.0); EOSINOPHILS % (AUTO) 1.5 % (1.0-6.0); HEMOGLOBIN 7.7 g/dL (12.0-16.0); MEAN CORPUSCULAR HEMOGLOBIN 30.6 pg (26.0-34.0); MEAN CORPUSCULAR HGB CONC 34.9 G/dL (31.0-37.0); MEAN CORPUSCULAR VOLUME 88 fL (80-100); MONOCYTES # (AUTO) 0.6 K/uL (0.1-1.0); MONOCYTES % (AUTO) 6.7 % (2.0-9.0); NEUTROPHILS # (AUTO) 6.2 K/uL (1.8-7.7); NEUTROPHILS % (AUTO) 69.2 % (40.0-70.0); PLATELET COUNT (AUTO) 251 K/uL (150-450); RED CELL DISTRIBUTION WIDTH 16.6 % (11.5-14.5)
[2017-06-16] MEDS: CLARITHROMYCIN 500 MG TABLET PO SCH ×2 (12:50→20:14)
[2017-06-16] MEDS: AMOXICILLIN TRIHYDRATE 500 MG CAPSULE PO SCH ×2 (12:50→20:14)
[2017-06-16 16:08] LABS: BASOPHILS % (AUTO) 0.6 % (0.0-2.0); EOSINOPHILS % (AUTO) 1.8 % (1.0-6.0); HEMATOCRIT 23.7 % (36-46); HEMOGLOBIN 8.1 g/dL (12.0-16.0); LYMPHOCYTES # (AUTO) 2.3 K/uL (1.0-4.8); LYMPHOCYTES % (AUTO) 25.3 % (22.0-44.0); MEAN CORPUSCULAR HEMOGLOBIN 30.1 pg (26.0-34.0); MEAN CORPUSCULAR HGB CONC 34.1 G/dL (31.0-37.0); MEAN CORPUSCULAR VOLUME 88 fL (80-100); MONOCYTES # (AUTO) 0.7 K/uL (0.1-1.0); MONOCYTES % (AUTO) 7.5 % (2.0-9.0); NEUTROPHILS # (AUTO) 5.9 K/uL (1.8-7.7); NEUTROPHILS % (AUTO) 64.8 % (40.0-70.0); PLATELET COUNT (AUTO) 255 K/uL (150-450); RED BLOOD CELL COUNT(AUTO) 2.68 MIL/uL (4.00-5.20); RED CELL DISTRIBUTION WIDTH 16.3 % (11.5-14.5)
[2017-06-16 22:14] LABS: BASOPHILS % (AUTO) 0.8 % (0.0-2.0); EOSINOPHILS % (AUTO) 1.5 % (1.0-6.0); HEMATOCRIT 22.7 % (36-46); HEMOGLOBIN 7.9 g/dL (12.0-16.0); LYMPHOCYTES # (AUTO) 1.7 K/uL (1.0-4.8); LYMPHOCYTES % (AUTO) 23.7 % (22.0-44.0); MEAN CORPUSCULAR HEMOGLOBIN 30.5 pg (26.0-34.0); MEAN CORPUSCULAR HGB CONC 34.7 G/dL (31.0-37.0); MEAN CORPUSCULAR VOLUME 88 fL (80-100); MONOCYTES # (AUTO) 0.6 K/uL (0.1-1.0); MONOCYTES % (AUTO) 7.6 % (2.0-9.0); NEUTROPHILS # (AUTO) 4.9 K/uL (1.8-7.7); NEUTROPHILS % (AUTO) 66.4 % (40.0-70.0); PLATELET COUNT (AUTO) 253 K/uL (150-450); RED BLOOD CELL COUNT(AUTO) 2.58 MIL/uL (4.00-5.20); RED CELL DISTRIBUTION WIDTH 16.7 % (11.5-14.5)
[2017-06-17] VITALS (15 sets, daily range): BP systolic 89–139; BP diastolic 46–75
[2017-06-17] MEDS: PANTOPRAZOLE SODIUM 80 MG in SODIUM CHLORIDE 0.9% 100 ML IV SCH ×3 (03:16→22:42)
[2017-06-17] MEDS: MORPHINE SULFATE 4 MG/ML SYRINGE IVP PRN ×4 (03:17→22:42)
[2017-06-17] MEDS: SODIUM CHLORIDE 0.45% 1,000 ML IV SCH ×3 (03:40→23:04)
[2017-06-17 07:05] LABS: BASOPHILS % (AUTO) 0.5 % (0.0-2.0); EOSINOPHILS % (AUTO) 0.9 % (1.0-6.0); LYMPHOCYTES % (AUTO) 25.7 % (22.0-44.0); MEAN CORPUSCULAR HEMOGLOBIN 30.9 pg (26.0-34.0); MEAN CORPUSCULAR HGB CONC 34.7 G/dL (31.0-37.0); MEAN CORPUSCULAR VOLUME 89 fL (80-100); MONOCYTES # (AUTO) 0.5 K/uL (0.1-1.0); NEUTROPHILS % (AUTO) 65.9 % (40.0-70.0); PLATELET COUNT (AUTO) 231 K/uL (150-450); RED BLOOD CELL COUNT(AUTO) 1.87 MIL/uL (4.00-5.20); RED CELL DISTRIBUTION WIDTH 16.2 % (11.5-14.5)
[2017-06-17 07:11] LABS: ANION GAP 6 mmol/L (8-16); CALCIUM, TOTAL 7.7 mg/dL (8.8-10.5); CARBON DIOXIDE 24 mmol/L (22-29); CHLORIDE 106 mmol/L (98-107); CREATININE 0.75 mg/dL (0.60-1.30); GLOMERULAR FILTR. RATE CALC > 60 mL/min (>60); GLUCOSE,RANDOM 82 mg/dL (70-110); POTASSIUM 5.2 mmol/L (3.5-5.1); SODIUM SERUM 136 mmol/L (136-145); UREA NITROGEN, BLOOD 26 mg/dL (7-18)
[2017-06-17 07:14] LABS: % IRON SATURATION 16.9 % (22-44); IRON, SERUM 33 mcg/dL (50-175); TOTAL IRON BINDING CAPACITY 195 mcg/dL (250-450)
[2017-06-17 07:17] LABS: HEMOGLOBIN 5.8 g/dL (12.0-16.0)
[2017-06-17 07:18] LABS: HEMATOCRIT 16.7 % (36-46)
[2017-06-17] MEDS ORDERED: DiphenhydrAMINE HCL 50 MG/ML VIAL IVP ONE (07:45)
[2017-06-17] MEDS ORDERED: ACETAMINOPHEN 325 MG TABLET PO ONE (07:45)
[2017-06-17] MEDS ORDERED: SODIUM CHLORIDE 0.9% 250 ML IV ONE (08:21)
[2017-06-17] MEDS: CLARITHROMYCIN 500 MG TABLET PO SCH ×2 (09:53→20:19)
[2017-06-17] MEDS: AMOXICILLIN TRIHYDRATE 500 MG CAPSULE PO SCH ×2 (09:53→20:19)
[2017-06-17 17:32] LABS: BASOPHILS % (AUTO) 0.4 % (0.0-2.0); EOSINOPHILS % (AUTO) 1.1 % (1.0-6.0); HEMATOCRIT 29.7 % (36-46); HEMOGLOBIN 10.4 g/dL (12.0-16.0); LYMPHOCYTES # (AUTO) 2.3 K/uL (1.0-4.8); LYMPHOCYTES % (AUTO) 23.6 % (22.0-44.0); MEAN CORPUSCULAR HEMOGLOBIN 31.7 pg (26.0-34.0); MEAN CORPUSCULAR HGB CONC 35.1 G/dL (31.0-37.0); MEAN CORPUSCULAR VOLUME 90 fL (80-100); MONOCYTES # (AUTO) 0.9 K/uL (0.1-1.0); NEUTROPHILS # (AUTO) 6.4 K/uL (1.8-7.7); NEUTROPHILS % (AUTO) 65.9 % (40.0-70.0); PLATELET COUNT (AUTO) 196 K/uL (150-450); RED BLOOD CELL COUNT(AUTO) 3.28 MIL/uL (4.00-5.20); RED CELL DISTRIBUTION WIDTH 15.6 % (11.5-14.5)
[2017-06-18] VITALS (20 sets, daily range): BP systolic 81–106; BP diastolic 40–74
[2017-06-18 06:29] LABS: BASOPHILS % (AUTO) 0.5 % (0.0-2.0); EOSINOPHILS % (AUTO) 1.9 % (1.0-6.0); HEMOGLOBIN 7.1 g/dL (12.0-16.0); LYMPHOCYTES # (AUTO) 2.4 K/uL (1.0-4.8); LYMPHOCYTES % (AUTO) 24.8 % (22.0-44.0); MEAN CORPUSCULAR HEMOGLOBIN 31.9 pg (26.0-34.0); MEAN CORPUSCULAR HGB CONC 35.5 G/dL (31.0-37.0); MEAN CORPUSCULAR VOLUME 90 fL (80-100); MONOCYTES # (AUTO) 0.8 K/uL (0.1-1.0); MONOCYTES % (AUTO) 8.3 % (2.0-9.0); NEUTROPHILS # (AUTO) 6.3 K/uL (1.8-7.7); NEUTROPHILS % (AUTO) 64.5 % (40.0-70.0); PLATELET COUNT (AUTO) 171 K/uL (150-450); RED BLOOD CELL COUNT(AUTO) 2.24 MIL/uL (4.00-5.20); RED CELL DISTRIBUTION WIDTH 15.3 % (11.5-14.5)
[2017-06-18 07:26] LABS: HEMATOCRIT 20.1 % (36-46)
[2017-06-18] MEDS: AMOXICILLIN TRIHYDRATE 500 MG CAPSULE PO SCH ×2 (08:25→20:37)
[2017-06-18] MEDS: SODIUM CHLORIDE 0.45% 1,000 ML IV SCH ×2 (08:25→18:06)
[2017-06-18] MEDS: CLARITHROMYCIN 500 MG TABLET PO SCH ×2 (08:25→20:37)
[2017-06-18] MEDS: PANTOPRAZOLE SODIUM 80 MG in SODIUM CHLORIDE 0.9% 100 ML IV SCH ×2 (08:26→17:19)
[2017-06-18] MEDS: MORPHINE SULFATE 4 MG/ML SYRINGE IVP PRN (08:27)
[2017-06-18 10:58] LABS: ALANINE AMINOTRANSFERASE 15 U/L (12-78); ALBUMIN 1.6 g/dL (3.4-5.0); ALKALINE PHOSPHATASE 61 U/L (46-116); ANION GAP 8 mmol/L (8-16); ASPARTATE AMINOTRANSFERASE 23 U/L (15-37); BILIRUBIN,TOTAL 0.3 mg/dL (0.1-1.0); CALCIUM, TOTAL 7.6 mg/dL (8.8-10.5); CARBON DIOXIDE 21 mmol/L (22-29); CHLORIDE 108 mmol/L (98-107); CREATININE 0.79 mg/dL (0.60-1.30); GLOMERULAR FILTR. RATE CALC > 60 mL/min (>60); GLUCOSE,RANDOM 86 mg/dL (70-110); POTASSIUM 5.2 mmol/L (3.5-5.1); SODIUM SERUM 137 mmol/L (136-145); TOTAL PROTEIN, SERUM 4.4 g/dL (6.4-8.2); UREA NITROGEN, BLOOD 34 mg/dL (7-18)
[2017-06-18] MEDS: PROMETHAZINE HCL/CODEINE 6.25-10MG/5ML SYRUP UDCUP PO PRN (13:48)
[2017-06-18] MEDS ORDERED: MAGNESIUM SULFATE 2 GM in DEXTROSE 5%-WATER 50 ML IV ONE (14:45)
[2017-06-18] MEDS ORDERED: PRAM0.258 PO (14:47)
[2017-06-18] MEDS: HYDROCODONE/ACETAMINOPHEN 5-325 MG TABLET PO PRN (14:51)
[2017-06-18] MEDS: PRAMIPEXOLE DI HCL 1.5 MG PO SCH (15:39)
[2017-06-18] MEDS: BACLOFEN 10 MG TABLET PO SCH ×2 (15:39→20:37)
[2017-06-18 17:32] LABS: HEMATOCRIT 17.3 % (36-46)
[2017-06-18] MEDS: MONTELUKAST SODIUM 10 MG TABLET PO SCH (20:37)
[2017-06-19] VITALS (8 sets, daily range): BP systolic 84–141; BP diastolic 49–66
[2017-06-19 03:30] LABS: HEMATOCRIT 28.1 % (36-46)
[2017-06-19] MEDS: PANTOPRAZOLE SODIUM 80 MG in SODIUM CHLORIDE 0.9% 100 ML IV SCH ×2 (03:49→13:27)
[2017-06-19] MEDS: SODIUM CHLORIDE 0.45% 1,000 ML IV SCH ×3 (05:06→18:00)
[2017-06-19 05:19] LABS: HEMATOCRIT 28.3 % (36-46); HEMOGLOBIN 9.9 g/dL (12.0-16.0); MEAN CORPUSCULAR HEMOGLOBIN 31.2 pg (26.0-34.0); MEAN CORPUSCULAR HGB CONC 34.9 G/dL (31.0-37.0); MEAN CORPUSCULAR VOLUME 90 fL (80-100); PLATELET COUNT (AUTO) 132 K/uL (150-450); RED BLOOD CELL COUNT(AUTO) 3.16 MIL/uL (4.00-5.20); RED CELL DISTRIBUTION WIDTH 14.1 % (11.5-14.5)
[2017-06-19 05:29] LABS: ANION GAP 7 mmol/L (8-16); CALCIUM, TOTAL 7.5 mg/dL (8.8-10.5); CARBON DIOXIDE 21 mmol/L (22-29); CHLORIDE 108 mmol/L (98-107); CREATININE 0.73 mg/dL (0.60-1.30); GLOMERULAR FILTR. RATE CALC > 60 mL/min (>60); GLUCOSE,RANDOM 106 mg/dL (70-110); POTASSIUM 4.8 mmol/L (3.5-5.1); SODIUM SERUM 136 mmol/L (136-145); UREA NITROGEN, BLOOD 36 mg/dL (7-18)
[2017-06-19] MEDS: AMOXICILLIN TRIHYDRATE 500 MG CAPSULE PO SCH ×2 (08:22→21:01)
[2017-06-19] MEDS: PRAMIPEXOLE DI HCL 1.5 MG PO SCH (08:23)
[2017-06-19] MEDS: VALSARTAN 160 MG TABLET PO SCH (08:23)
[2017-06-19] MEDS: BACLOFEN 10 MG TABLET PO SCH ×3 (08:23→21:01)
[2017-06-19] MEDS: CLARITHROMYCIN 500 MG TABLET PO SCH ×2 (08:23→21:00)
[2017-06-19 09:54] LABS: BAND NEUTROPHILS % (MANUAL) 5 % (0-5); LYMPHOCYTES % (MANUAL) 16 % (22-44); MONOCYTES % (MANUAL) 8 % (2-9); SEGMENTED NEUTROPHILS % 71 % (40-70)
[2017-06-19 14:57] LABS: HEMATOCRIT 24.7 % (36-46); HEMOGLOBIN 8.6 g/dL (12.0-16.0)
[2017-06-19] MEDS: MONTELUKAST SODIUM 10 MG TABLET PO SCH (21:00)
[2017-06-19 21:01] LABS: HEMATOCRIT 26.9 % (36-46); HEMOGLOBIN 9.5 g/dL (12.0-16.0)
[2017-06-19] MEDS: HYDROCODONE/ACETAMINOPHEN 5-325 MG TABLET PO PRN (21:01)
[2017-06-20] VITALS (8 sets, daily range): BP systolic 86–133; BP diastolic 5–94
[2017-06-20] MEDS: PANTOPRAZOLE SODIUM 80 MG in SODIUM CHLORIDE 0.9% 100 ML IV SCH ×3 (00:27→20:13)
[2017-06-20] MEDS: SODIUM CHLORIDE 0.45% 1,000 ML IV SCH ×2 (04:14→14:51)
[2017-06-20 05:28] LABS: BASOPHILS % (AUTO) 0.4 % (0.0-2.0); EOSINOPHILS % (AUTO) 2.4 % (1.0-6.0); HEMATOCRIT 21.7 % (36-46); HEMOGLOBIN 7.9 g/dL (12.0-16.0); LYMPHOCYTES # (AUTO) 1.3 K/uL (1.0-4.8); LYMPHOCYTES % (AUTO) 16.2 % (22.0-44.0); MEAN CORPUSCULAR HEMOGLOBIN 32.3 pg (26.0-34.0); MEAN CORPUSCULAR HGB CONC 36.4 G/dL (31.0-37.0); MEAN CORPUSCULAR VOLUME 89 fL (80-100); MONOCYTES % (AUTO) 12.1 % (2.0-9.0); NEUTROPHILS # (AUTO) 5.6 K/uL (1.8-7.7); NEUTROPHILS % (AUTO) 68.9 % (40.0-70.0); PLATELET COUNT (AUTO) 155 K/uL (150-450); RED BLOOD CELL COUNT(AUTO) 2.45 MIL/uL (4.00-5.20); RED CELL DISTRIBUTION WIDTH 14.3 % (11.5-14.5)
[2017-06-20 05:48] LABS: ALANINE AMINOTRANSFERASE 14 U/L (12-78); ALBUMIN 1.6 g/dL (3.4-5.0); ALKALINE PHOSPHATASE 51 U/L (46-116); ANION GAP 6 mmol/L (8-16); ASPARTATE AMINOTRANSFERASE 19 U/L (15-37); BILIRUBIN,TOTAL 0.4 mg/dL (0.1-1.0); CALCIUM, TOTAL 7.5 mg/dL (8.8-10.5); CARBON DIOXIDE 23 mmol/L (22-29); CHLORIDE 108 mmol/L (98-107); CREATININE 0.62 mg/dL (0.60-1.30); GLOMERULAR FILTR. RATE CALC > 60 mL/min (>60); GLUCOSE,RANDOM 110 mg/dL (70-110); POTASSIUM 4.2 mmol/L (3.5-5.1); SODIUM SERUM 137 mmol/L (136-145); TOTAL PROTEIN, SERUM 4.1 g/dL (6.4-8.2); UREA NITROGEN, BLOOD 17 mg/dL (7-18)
[2017-06-20] MEDS: PROMETHAZINE HCL/CODEINE 6.25-10MG/5ML SYRUP UDCUP PO PRN ×2 (09:22→22:15)
[2017-06-20] MEDS: CLARITHROMYCIN 500 MG TABLET PO SCH ×2 (09:22→20:29)
[2017-06-20] MEDS: BACLOFEN 10 MG TABLET PO SCH ×3 (09:23→20:29)
[2017-06-20] MEDS: VALSARTAN 160 MG TABLET PO SCH (09:24)
[2017-06-20] MEDS: PRAMIPEXOLE DI HCL 1.5 MG PO SCH (09:24)
[2017-06-20] MEDS: HYDROCODONE/ACETAMINOPHEN 5-325 MG TABLET PO PRN ×2 (09:24→20:30)
[2017-06-20] MEDS: AMOXICILLIN TRIHYDRATE 500 MG CAPSULE PO SCH ×2 (09:24→20:29)
[2017-06-20 11:45] LABS: HEMATOCRIT 23.5 % (36-46); HEMOGLOBIN 8.4 g/dL (12.0-16.0)
[2017-06-20] MEDS ORDERED: MAGNESIUM SULFATE 2 GM in DEXTROSE 5%-WATER 50 ML IV ONE (12:00)
[2017-06-20 17:12] LABS: HEMOGLOBIN 8.5 g/dL (12.0-16.0)
[2017-06-20] MEDS: MONTELUKAST SODIUM 10 MG TABLET PO SCH (20:29)
[2017-06-21] VITALS: BP 93/49
[2017-06-21] MEDS: SODIUM CHLORIDE 0.45% 1,000 ML IV SCH ×3 (00:51→20:55)
[2017-06-21 04:00] VITALS: BP 116/60
[2017-06-21 04:41] LABS: BASOPHILS % (AUTO) 0.6 % (0.0-2.0); EOSINOPHILS % (AUTO) 2.8 % (1.0-6.0); HEMATOCRIT 24.4 % (36-46); HEMOGLOBIN 8.5 g/dL (12.0-16.0); LYMPHOCYTES # (AUTO) 1.8 K/uL (1.0-4.8); LYMPHOCYTES % (AUTO) 21.2 % (22.0-44.0); MEAN CORPUSCULAR HEMOGLOBIN 31.5 pg (26.0-34.0); MEAN CORPUSCULAR HGB CONC 34.8 G/dL (31.0-37.0); MEAN CORPUSCULAR VOLUME 91 fL (80-100); MONOCYTES # (AUTO) 1.1 K/uL (0.1-1.0); MONOCYTES % (AUTO) 12.9 % (2.0-9.0); NEUTROPHILS # (AUTO) 5.2 K/uL (1.8-7.7); NEUTROPHILS % (AUTO) 62.5 % (40.0-70.0); PLATELET COUNT (AUTO) 218 K/uL (150-450); RED CELL DISTRIBUTION WIDTH 14.3 % (11.5-14.5)
[2017-06-21 04:50] LABS: ANION GAP 6 mmol/L (8-16); CALCIUM, TOTAL 7.9 mg/dL (8.8-10.5); CARBON DIOXIDE 24 mmol/L (22-29); CHLORIDE 112 mmol/L (98-107); CREATININE 0.69 mg/dL (0.60-1.30); GLOMERULAR FILTR. RATE CALC > 60 mL/min (>60); GLUCOSE,RANDOM 105 mg/dL (70-110); POTASSIUM 3.9 mmol/L (3.5-5.1); SODIUM SERUM 142 mmol/L (136-145); UREA NITROGEN, BLOOD 9 mg/dL (7-18)
[2017-06-21] MEDS: PANTOPRAZOLE SODIUM 80 MG in SODIUM CHLORIDE 0.9% 100 ML IV SCH ×2 (06:47→21:09)
[2017-06-21 08:00] VITALS: BP 148/79
[2017-06-21] MEDS: PRAMIPEXOLE DI HCL 1.5 MG PO SCH (09:01)
[2017-06-21] MEDS: VALSARTAN 160 MG TABLET PO SCH (09:02)
[2017-06-21] MEDS: BACLOFEN 10 MG TABLET PO SCH ×3 (09:02→20:26)
[2017-06-21] MEDS: MULTIVITAMINS WITH MINERALS, THERAPEUTIC TABLET PO SCH (09:02)
[2017-06-21] MEDS: AMOXICILLIN TRIHYDRATE 500 MG CAPSULE PO SCH ×2 (09:02→20:26)
[2017-06-21] MEDS: CLARITHROMYCIN 500 MG TABLET PO SCH ×2 (09:02→20:26)
[2017-06-21] MEDS: PROMETHAZINE HCL/CODEINE 6.25-10MG/5ML SYRUP UDCUP PO PRN ×2 (09:24→20:26)
[2017-06-21 11:27] VITALS: BP 135/62
[2017-06-21 15:25] VITALS: BP 141/82
[2017-06-21 15:45] LABS: HEMOGLOBIN 8.3 g/dL (12.0-16.0)
[2017-06-21] MEDS: HYDROCODONE/ACETAMINOPHEN 5-325 MG TABLET PO PRN (18:03)
[2017-06-21 20:19] VITALS: BP 122/78
[2017-06-21] MEDS: MONTELUKAST SODIUM 10 MG TABLET PO SCH (20:26)
[2017-06-21 22:21] LABS: HEMOGLOBIN 8.2 g/dL (12.0-16.0)
[2017-06-22 00:50] VITALS: BP 132/76
[2017-06-22] MEDS: PANTOPRAZOLE SODIUM 80 MG in SODIUM CHLORIDE 0.9% 100 ML IV SCH (02:30)
[2017-06-22 04:31] VITALS: BP 147/78
[2017-06-22] MEDS: HYDROCODONE/ACETAMINOPHEN 5-325 MG TABLET PO PRN ×2 (05:34→18:47)
[2017-06-22] MEDS: PROMETHAZINE HCL/CODEINE 6.25-10MG/5ML SYRUP UDCUP PO PRN (05:34)
[2017-06-22] MEDS: SODIUM CHLORIDE 0.45% 1,000 ML IV SCH (05:36)
[2017-06-22 07:07] VITALS: BP 109/84
[2017-06-22 07:19] LABS: BASOPHILS % (AUTO) 0.7 % (0.0-2.0); EOSINOPHILS % (AUTO) 2.1 % (1.0-6.0); HEMATOCRIT 24.8 % (36-46); HEMOGLOBIN 8.8 g/dL (12.0-16.0); LYMPHOCYTES # (AUTO) 1.2 K/uL (1.0-4.8); MEAN CORPUSCULAR HGB CONC 35.3 G/dL (31.0-37.0); MEAN CORPUSCULAR VOLUME 91 fL (80-100); MONOCYTES # (AUTO) 1.1 K/uL (0.1-1.0); MONOCYTES % (AUTO) 13.1 % (2.0-9.0); NEUTROPHILS # (AUTO) 5.6 K/uL (1.8-7.7); NEUTROPHILS % (AUTO) 69.1 % (40.0-70.0); PLATELET COUNT (AUTO) 275 K/uL (150-450); RED BLOOD CELL COUNT(AUTO) 2.74 MIL/uL (4.00-5.20); RED CELL DISTRIBUTION WIDTH 14.4 % (11.5-14.5)
[2017-06-22] MEDS: VALSARTAN 160 MG TABLET PO SCH (08:15)
[2017-06-22] MEDS: BACLOFEN 10 MG TABLET PO SCH ×2 (08:15→17:11)
[2017-06-22] MEDS: AMOXICILLIN TRIHYDRATE 500 MG CAPSULE PO SCH (08:15)
[2017-06-22] MEDS: MULTIVITAMINS WITH MINERALS, THERAPEUTIC TABLET PO SCH (08:16)
[2017-06-22] MEDS: PRAMIPEXOLE DI HCL 1.5 MG PO SCH (08:16)
[2017-06-22] MEDS: CLARITHROMYCIN 500 MG TABLET PO SCH (08:16)
[2017-06-22 11:13] VITALS: BP 118/61
[2017-06-22 15:08] VITALS: BP 127/77
[2017-06-22] MEDS ORDERED: BACL10TA PO (17:58)
[2017-06-22] MEDS ORDERED: AMOX500C2 PO (17:58)
[2017-06-22] MEDS ORDERED: CLAR250T PO (17:59)
[2017-06-22] MEDS ORDERED: MONT10TA21 PO (18:02)
[2017-06-22] MEDS ORDERED: CLAR500T PO (18:02)
[2017-06-22] MEDS ORDERED: PANT40TA25 PO (18:05)
[2017-06-22] MEDS ORDERED: MULT-29 PO (18:05)
[2017-06-22] MEDS ORDERED: PRAM15 PO (18:06)
[2017-06-22] MEDS ORDERED: VALS160T2 PO (18:06)
[2017-06-22] MEDS ORDERED: HYDR-4061 PO (18:07)
[2017-06-22] MEDS ORDERED: PROME5L PO (18:10)
[2017-06-22] MEDS ORDERED: PANTOPRAZOLE SODIUM 40 MG DR TABLET PO SCH (21:00)
== END 2017-06-22 19:05 | DRG 377 ==
LOC: EMS 11:28 → ICU 14:00 → 5S 06-21 11:10
PROVIDERS: ADMIT Family Medicine; ATTEND Family Medicine
PROC: 30233N1 Transfusion of Nonautologous Red Blood Cells into Peripheral Vein, Percutaneous Approach (ICD-10-PCS; 2017-06-15)
PROC: 0DB68ZX Excision of Stomach, Via Natural or Artificial Opening Endoscopic, Diagnostic (ICD-10-PCS; principal; 2017-06-16 11:30)
DX: K26.4 Chronic or unspecified duodenal ulcer with hemorrhage (principal); R65.11 Systemic inflammatory response syndrome (SIRS) of non-infectious origin with acute organ dysfunction; E43 Unspecified severe protein-calorie malnutrition; N17.9 Acute kidney failure, unspecified; I95.9 Hypotension, unspecified; G20 Parkinson's disease; E87.5 Hyperkalemia; D62 Acute posthemorrhagic anemia; Z68.1 Body mass index [BMI] 19.9 or less, adult; M19.90 Unspecified osteoarthritis, unspecified site; G89.4 Chronic pain syndrome; M54.5 Low back pain; G25.81 Restless legs syndrome; I10 Essential (primary) hypertension; I70.0 Atherosclerosis of aorta; Z79.899 Other long term (current) drug therapy
CPT/HCPCS: 36430; 74176; 82271; 82948; 83540; 83550; 83605; 83735; 85014; 85018; 86301; 86850; 86900; 86901; 86920; 87040; 87081; 88305; 88312; 93005; 96365; 96375; 97163; 97166; 97530; 97535; 99291; C9113; J0744; J1200; J1815; J2270; J2405; J3010; J3475; J7030; J7050; J7060; P9016

== ENCOUNTER 2017-11-15 14:18 | Emergency (ER) | payer MEDICARE, OTHER ==
[~2017-11-15] VITALS: Ht 144.8 cm; Wt 47.7 kg
[~2017-11-15 14:18] MED LIST changes: +AMOX500C2 PO; +CLAR500T PO; +HYDR-4061 PO; +MULT-29 PO; +PANT40TA25 PO; +PRAM0.258 PO; -PRAM1.5T7 PO; +PRAM15 PO; +PROM6.2522 PO; +VALS160T2 PO; -VALS320T16 PO; +VALS320T17 PO
[2017-11-15] MEDS ORDERED: ACETAMINOPHEN 500 MG TABLET PO ONE (15:45)
[2017-11-15 15:56] VITALS: BP 131/65
[2017-11-15 15:56] LABS: BASOPHILS % (AUTO) 0.7 % (0.0-2.0); EOSINOPHILS % (AUTO) 3.6 % (1.0-6.0); HEMATOCRIT 28.7 % (36-46); HEMOGLOBIN 9.3 g/dL (12.0-16.0); LYMPHOCYTES # (AUTO) 1.8 K/uL (1.0-4.8); LYMPHOCYTES % (AUTO) 29.1 % (22.0-44.0); MEAN CORPUSCULAR HEMOGLOBIN 28.7 pg (26.0-34.0); MEAN CORPUSCULAR HGB CONC 32.5 G/dL (31.0-37.0); MEAN CORPUSCULAR VOLUME 88 fL (80-100); MONOCYTES # (AUTO) 0.7 K/uL (0.1-1.0); MONOCYTES % (AUTO) 12.1 % (2.0-9.0); NEUTROPHILS # (AUTO) 3.3 K/uL (1.8-7.7); NEUTROPHILS % (AUTO) 54.5 % (40.0-70.0); PLATELET COUNT (AUTO) 371 K/uL (150-450); RED BLOOD CELL COUNT(AUTO) 3.25 MIL/uL (4.00-5.20); RED CELL DISTRIBUTION WIDTH 20.3 % (11.5-14.5)
[2017-11-15 16:10] LABS: ANION GAP 7 mmol/L (8-16); CALCIUM, TOTAL 8.7 mg/dL (8.8-10.5); CARBON DIOXIDE 28 mmol/L (22-29); CHLORIDE 104 mmol/L (98-107); CREATININE 0.87 mg/dL (0.60-1.30); GLUCOSE,RANDOM 127 mg/dL (70-110); POTASSIUM 4.7 mmol/L (3.5-5.1); SODIUM SERUM 139 mmol/L (136-145); UREA NITROGEN, BLOOD 22 mg/dL (7-18)
[2017-11-15 16:11] LABS: GLOMERULAR FILTR. RATE CALC > 60 mL/min (>60)
[2017-11-15 16:15] LABS: ALANINE AMINOTRANSFERASE 11 U/L (12-78); ALBUMIN 2.7 g/dL (3.4-5.0); ALKALINE PHOSPHATASE 188 U/L (46-116); ASPARTATE AMINOTRANSFERASE 29 U/L (15-37); BILIRUBIN,TOTAL 0.2 mg/dL (0.1-1.0)
== END 2017-11-15 17:30 | disposition home or self-care (01) ==
LOC: EMS 14:19
DX: D64.9 Anemia, unspecified (principal); R53.1 Weakness; M17.12 Unilateral primary osteoarthritis, left knee; G20 Parkinson's disease
CPT/HCPCS: 93005; 99285

== ENCOUNTER 2017-12-13 03:29 | Emergency (ER) | payer MEDICARE, OTHER ==
[~2017-12-13] VITALS: Ht 144.8 cm; Wt 47.0 kg
[~2017-12-13 03:29] MED LIST changes: -AMOX500C2 PO; -CLAR500T PO
[2017-12-13] MEDS ORDERED: FERR-89 PO (03:55)
[2017-12-13] MEDS ORDERED: CARB1TAB35 PO (03:55)
[2017-12-13] MEDS ORDERED: TRAM50TA4 PO (03:55)
[2017-12-13] MEDS ORDERED: PRIM50TA23 PO (03:55)
[2017-12-13] MEDS ORDERED: KETOROLAC TROMETHAMINE 30 MG/ML VIAL IM ONE (05:00)
[2017-12-13] MEDS ORDERED: TraMADol HCL 50 MG TABLET PO ONE (05:00)
[2017-12-13 05:15] VITALS: BP 124/71
== END 2017-12-13 05:21 | disposition home or self-care (01) ==
LOC: EMS 03:30
DX: M17.0 Bilateral primary osteoarthritis of knee (principal); G89.29 Other chronic pain; I10 Essential (primary) hypertension; Z79.891 Long term (current) use of opiate analgesic; Z79.899 Other long term (current) drug therapy
CPT/HCPCS: 96372; 99283; J1885

== ENCOUNTER 2018-04-30 13:23 | Emergency (ER) | payer MEDICARE, OTHER ==
[~2018-04-30] VITALS: Ht 152.4 cm; Wt 43.2 kg
[~2018-04-30 13:23] MED LIST changes: -BACL10TA PO; +CARB1TAB35 PO; +FERR-89 PO; -HYDR-3290 PO; -HYDR-4061 PO; -PANT40TA25 PO; -PRAM0.258 PO; -PRAM15 PO; +PRIM50TA23 PO; -PROM6.2522 PO; +TRAM50TA4 PO; -VALS160T2 PO; -VALS320T17 PO
[2018-04-30] MEDS ORDERED: TraMADol HCL 50 MG TABLET PO ONE (15:45)
[2018-04-30 17:15] VITALS: BP 118/70
== END 2018-04-30 17:42 | disposition home or self-care (01) ==
LOC: EMS 13:26
DX: M25.462 Effusion, left knee (principal); M13.862 Other specified arthritis, left knee; I10 Essential (primary) hypertension; G89.29 Other chronic pain; M54.9 Dorsalgia, unspecified; G20 Parkinson's disease; Z79.899 Other long term (current) drug therapy

== ENCOUNTER 2018-06-21 07:29 | Emergency (ER) | payer MEDICARE, OTHER ==
[~2018-06-21] VITALS: Ht 144.8 cm; Wt 43.2 kg
[2018-06-21] MEDS ORDERED: PredniSONE 20 MG TABLET PO ONE (08:45)
[2018-06-21] MEDS ORDERED: HYDROCODONE/ACETAMINOPHEN 5-325 MG TABLET PO ONE (08:45)
[2018-06-21 11:26] VITALS: BP 128/69
== END 2018-06-21 11:44 | disposition home or self-care (01) ==
LOC: EMS 07:30
DX: M17.12 Unilateral primary osteoarthritis, left knee (principal); G89.29 Other chronic pain; R05 Cough; I10 Essential (primary) hypertension; Z79.899 Other long term (current) drug therapy
CPT/HCPCS: 71045; 99283; J7512

== ENCOUNTER 2018-08-03 19:46 | Emergency (ER) | payer MEDICARE, OTHER ==
[~2018-08-03] VITALS: Ht 144.8 cm; Wt 40.9 kg
[2018-08-03] MEDS ORDERED: HYDROCODONE/ACETAMINOPHEN 5-325 MG TABLET PO ONE (20:30)
[2018-08-03 21:20] VITALS: BP 133/78
== END 2018-08-03 22:00 | disposition home or self-care (01) ==
LOC: EMS 19:48
DX: G89.29 Other chronic pain (principal); M25.562 Pain in left knee; M54.9 Dorsalgia, unspecified; I10 Essential (primary) hypertension; M19.90 Unspecified osteoarthritis, unspecified site; G20 Parkinson's disease; Z79.899 Other long term (current) drug therapy

== ENCOUNTER 2019-04-05 16:58 | Emergency (ER) | payer MEDICARE, OTHER ==
[~2019-04-05] VITALS: Ht 154.9 cm; Wt 63.6 kg
[2019-04-05] MEDS ORDERED: KETOROLAC TROMETHAMINE 30 MG/ML VIAL IM ONE (18:30)
[2019-04-05 18:36] LABS: BASOPHILS % (AUTO) 0.8 % (0.0-2.0); HEMATOCRIT 31.8 % (36-46); LYMPHOCYTES # (AUTO) 1.7 K/uL (1.0-4.8); MEAN CORPUSCULAR HEMOGLOBIN 27.4 pg (26.0-34.0); MEAN CORPUSCULAR HGB CONC 31.6 G/dL (31.0-37.0); MEAN CORPUSCULAR VOLUME 87 fL (80-100); MONOCYTES # (AUTO) 0.5 K/uL (0.1-1.0); MONOCYTES % (AUTO) 8.9 % (2.0-9.0); NEUTROPHILS # (AUTO) 3.4 K/uL (1.8-7.7); NEUTROPHILS % (AUTO) 59.3 % (40.0-70.0); PLATELET COUNT (AUTO) 309 K/uL (150-450); RED BLOOD CELL COUNT(AUTO) 3.67 MIL/uL (4.00-5.20); RED CELL DISTRIBUTION WIDTH 19.7 % (11.5-14.5)
[2019-04-05 18:46] LABS: ANION GAP 8 mmol/L (8-16); CARBON DIOXIDE 27 mmol/L (22-29); CHLORIDE 106 mmol/L (98-107); CREATININE 0.76 mg/dL (0.60-1.30); GLOMERULAR FILTR. RATE CALC > 60 mL/min (>60); GLUCOSE,RANDOM 106 mg/dL (70-110); POTASSIUM 4.6 mmol/L (3.5-5.1); SODIUM SERUM 141 mmol/L (136-145); UREA NITROGEN, BLOOD 29 mg/dL (7-18)
[2019-04-05 18:52] LABS: ALANINE AMINOTRANSFERASE 9 U/L (12-78); ALBUMIN 2.6 g/dL (3.4-5.0); ALKALINE PHOSPHATASE 131 U/L (46-116); ASPARTATE AMINOTRANSFERASE 30 U/L (15-37); BILIRUBIN,TOTAL 0.2 mg/dL (0.1-1.0); TOTAL PROTEIN, SERUM 8.6 g/dL (6.4-8.2)
[2019-04-05 19:40] LABS: ERYTHROCYTE SEDIMENTATION RATE 125 MM/HR (0-20)
[2019-04-05 20:25] VITALS: BP 117/79
== END 2019-04-05 21:13 | disposition home or self-care (01) ==
LOC: EMS 17:04
DX: M17.12 Unilateral primary osteoarthritis, left knee (principal); R05 Cough; I11.0 Hypertensive heart disease with heart failure; I50.9 Heart failure, unspecified; G89.29 Other chronic pain; M54.9 Dorsalgia, unspecified; G20 Parkinson's disease; Z79.899 Other long term (current) drug therapy
CPT/HCPCS: 36415; 71046; 73560; 80053; 85025; 85651; 96372; 99284; J1885

== ENCOUNTER 2019-04-29 22:19 | Emergency (ER) | payer MEDICARE, OTHER ==
[~2019-04-29] VITALS: Ht 149.9 cm; Wt 63.6 kg
[2019-04-30 04:23] LABS: BASOPHILS % (AUTO) 1.1 % (0.0-2.0); EOSINOPHILS % (AUTO) 1.7 % (1.0-6.0); HEMATOCRIT 29.8 % (36-46); HEMOGLOBIN 9.6 g/dL (12.0-16.0); LYMPHOCYTES # (AUTO) 1.9 K/uL (1.0-4.8); LYMPHOCYTES % (AUTO) 27.3 % (22.0-44.0); MEAN CORPUSCULAR HEMOGLOBIN 27.2 pg (26.0-34.0); MEAN CORPUSCULAR HGB CONC 32.2 G/dL (31.0-37.0); MEAN CORPUSCULAR VOLUME 85 fL (80-100); MONOCYTES # (AUTO) 0.4 K/uL (0.1-1.0); MONOCYTES % (AUTO) 5.7 % (2.0-9.0); NEUTROPHILS # (AUTO) 4.5 K/uL (1.8-7.7); NEUTROPHILS % (AUTO) 64.2 % (40.0-70.0); PLATELET COUNT (AUTO) 353 K/uL (150-450); RED BLOOD CELL COUNT(AUTO) 3.52 MIL/uL (4.00-5.20); RED CELL DISTRIBUTION WIDTH 19.6 % (11.5-14.5)
[2019-04-30 04:36] LABS: CALCIUM, TOTAL 9.5 mg/dL (8.8-10.5); CREATININE 0.9 mg/dL (0.60-1.30); POTASSIUM 4.1 mmol/L (3.5-5.1)
[2019-04-30] MEDS ORDERED: IOVERSOL 350 MG/ML 100 ML VIAL ONE (04:38)
[2019-04-30] MEDS ORDERED: SODIUM CHLORIDE 0.9% 100 ML ONE (04:39)
[2019-04-30 04:42] LABS: ALBUMIN 2.6 g/dL (3.4-5.0); BILIRUBIN,TOTAL 0.2 mg/dL (0.1-1.0); C-REACTIVE PROTEIN QUANT 4.73 mg/dL (0.00-0.30); TOTAL PROTEIN, SERUM 8.5 g/dL (6.4-8.2)
[2019-04-30] MEDS ORDERED: ACETAMINOPHEN 325 MG TABLET PO ONE (05:15)
[2019-04-30] MEDS ORDERED: IBUPROFEN 400 MG TABLET PO ONE (05:15)
[2019-04-30 05:38] LABS: ERYTHROCYTE SEDIMENTATION RATE 150 MM/HR (0-20)
[2019-04-30] MEDS ORDERED: GADOBUTROL 1 MMOL/ML 10 ML VIAL IVP ONE (11:46)
[2019-04-30] MEDS ORDERED: IBUPROFEN 600 MG TABLET PO ONE (14:15)
[2019-04-30] MEDS ORDERED: ACETAMINOPHEN 500 MG TABLET PO ONE (14:15)
[2019-04-30 15:58] LABS: SPECIMENTYPE,BODY FLUID SYNOVIAL
[2019-04-30 15:59] LABS: GLUCOSE,POINT OF CARE 89 MG/DL (70-110)
[2019-04-30 17:39] LABS: APPEARANCE,SPUN,BODY FLUID TURBID (CLEAR); APPEARANCE,UNSPUN,BODY FLUID CLOUDY (CLEAR); COLOR,BODY FLUID YELLOW (LT YELLOW); TOTAL VOLUME,BODY FLUID 20 mL; WBC, BODY FLUID 9370 /cu. mm.
[2019-04-30 17:40] LABS: BASOPHILS,BODY FLUID 0 %; EOSINOPHILS,BF (ANAL) 0 %
[2019-04-30 17:42] LABS: LYMPHOCYTES,BODY FLUID 5 %; MONOCYTES,BODY FLUID 5 %; NEUTROPHILS,BODY FLUID 90 %
[2019-04-30 19:30] VITALS: BP 119/78
== END 2019-04-30 20:26 | disposition home or self-care (01) ==
LOC: EMS 22:21
DX: M13.862 Other specified arthritis, left knee (principal); G89.29 Other chronic pain; G20 Parkinson's disease; I10 Essential (primary) hypertension; Z79.899 Other long term (current) drug therapy
CPT/HCPCS: 20610; 36415; 73562; 73723; 80053; 82962; 85025; 85651; 86140; 87015; 87040; 87070; 87205; 87206; 89051; 89060; 99285; A9585; J7050; Q9967; 82945; 84157; 87101

== ENCOUNTER 2019-05-25 14:30 | Inpatient (IN) | payer MEDICARE, OTHER ==
[~2019-05-25] VITALS: Ht 149.9 cm; Wt 47.5 kg
[2019-05-25] MEDS ORDERED: TraMADol HCL 50 MG TABLET PO ONE ×2 (15:45→20:45)
[2019-05-25] MEDS ORDERED: MORPHINE SULFATE 2 MG/ML SYRINGE IVP ONE (16:30)
[2019-05-25] MEDS ORDERED: SODIUM CHLORIDE 0.9% 1,000 ML IV ONE (16:30)
[2019-05-25] MEDS ORDERED: ACETAMINOPHEN 500 MG TABLET PO ONE (16:30)
[2019-05-25 17:01] LABS: INFLUENZA TYPE A NEGATIVE FOR TYPE A (NEGATIVE); INFLUENZA TYPE B NEGATIVE FOR TYPE B (NEGATIVE)
[2019-05-25 17:34] LABS: BASOPHILS % (AUTO) 0.8 % (0.0-2.0); EOSINOPHILS % (AUTO) 1.2 % (1.0-6.0); HEMOGLOBIN 8.8 g/dL (12.0-16.0); LYMPHOCYTES # (AUTO) 1.9 K/uL (1.0-4.8); LYMPHOCYTES % (AUTO) 26.8 % (22.0-44.0); MEAN CORPUSCULAR HEMOGLOBIN 26.6 pg (26.0-34.0); MEAN CORPUSCULAR HGB CONC 31.5 G/dL (31.0-37.0); MEAN CORPUSCULAR VOLUME 84 fL (80-100); MONOCYTES # (AUTO) 0.5 K/uL (0.1-1.0); MONOCYTES % (AUTO) 7.3 % (2.0-9.0); NEUTROPHILS # (AUTO) 4.6 K/uL (1.8-7.7); NEUTROPHILS % (AUTO) 63.9 % (40.0-70.0); PLATELET COUNT (AUTO) 410 K/uL (150-450); RED BLOOD CELL COUNT(AUTO) 3.31 MIL/uL (4.00-5.20); RED CELL DISTRIBUTION WIDTH 19.1 % (11.5-14.5)
[2019-05-25 17:50] LABS: CREATININE 0.89 mg/dL (0.60-1.30); POTASSIUM 4.3 mmol/L (3.5-5.1)
[2019-05-25 17:56] LABS: MAGNESIUM 2.2 mg/dL (1.80-2.40)
[2019-05-25 18:00] LABS: LACTIC ACID 0.6 mmol/L (0.4-2.0)
[2019-05-25 19:00] LABS: C-REACTIVE PROTEIN QUANT 5.84 mg/dL (0.00-0.30)
[2019-05-25] MEDS ORDERED: IBUPROFEN 600 MG TABLET PO ONE (21:00)
[2019-05-25] MEDS ORDERED: LIDOCAINE 5% TRANSDERMAL PATCH TD ONE (21:00)
[2019-05-25 21:33] LABS: APPEARANCE,URINE CLEAR (CLEAR); BILIRUBIN,URINE NEGATIVE (NEGATIVE); GLUCOSE, URINE (UA) NEGATIVE (NEGATIVE); KETONES,URINE NEGATIVE (NEGATIVE); LEUKOCYTE ESTERASE ,URINE NEGATIVE (NEGATIVE); NITRATE,URINE NEGATIVE (NEGATIVE); OCCULT BLOOD,URINE NEGATIVE (NEGATIVE); PH,URINE 5.5 (5.0-8.0); PROTEIN,URINE NEGATIVE (NEGATIVE); UROBILINOGEN,URINE 0.2 mg/dL (<=1.0)
[2019-05-25 21:38] LABS: BACTERIA,URINE None Seen /HPF (None Seen); RBC,URINE None Seen /HPF (0-2); SQUAMOUS EPITHELIAL CELL,UR Few /LPF (None Seen); WBC,URINE None Seen /HPF (0-5)
[2019-05-26] VITALS (7 sets, daily range): BP systolic 122–148; BP diastolic 61–85
[2019-05-26] MEDS ORDERED: 0.9% SODIUM CHLORIDE 10 ML SYRINGE IVP PRN (00:15)
[2019-05-26] MEDS ORDERED: ACETAMINOPHEN 325 MG TABLET PO PRN ×2 (00:15→07:45)
[2019-05-26] MEDS ORDERED: ONDANSETRON HCL 4 MG/2 ML VIAL IVP PRN ×2 (00:15→07:45)
[2019-05-26] MEDS ORDERED: MAGNESIUM HYDROXIDE SUSPENSION 30 ML UDCUP PO PRN (07:45)
[2019-05-26] MEDS: FERROUS SULFATE 325 MG EC TABLET PO SCH (08:00)
[2019-05-26] MEDS: FAMOTIDINE 20 MG TABLET PO SCH (09:00)
[2019-05-26 09:22] LABS: EOSINOPHILS % (AUTO) 1.8 % (1.0-6.0); HEMATOCRIT 31.3 % (36-46); LYMPHOCYTES # (AUTO) 1.7 K/uL (1.0-4.8); LYMPHOCYTES % (AUTO) 29.8 % (22.0-44.0); MEAN CORPUSCULAR HGB CONC 31.9 G/dL (31.0-37.0); MEAN CORPUSCULAR VOLUME 85 fL (80-100); MONOCYTES # (AUTO) 0.4 K/uL (0.1-1.0); MONOCYTES % (AUTO) 6.7 % (2.0-9.0); NEUTROPHILS # (AUTO) 3.5 K/uL (1.8-7.7); NEUTROPHILS % (AUTO) 60.7 % (40.0-70.0); PLATELET COUNT (AUTO) 430 K/uL (150-450); RED CELL DISTRIBUTION WIDTH 19.4 % (11.5-14.5)
[2019-05-26 09:45] LABS: ANION GAP 10 mmol/L (8-16); CALCIUM, TOTAL 9.2 mg/dL (8.8-10.5); CARBON DIOXIDE 24 mmol/L (22-29); CHLORIDE 106 mmol/L (98-107); CREATININE 0.81 mg/dL (0.60-1.30); GLUCOSE,RANDOM 138 mg/dL (70-110); HDL CHOLESTEROL 45 mg/dL (40-60); LDL CHOL (CALC.) 83 mg/dL (0-130); SODIUM SERUM 140 mmol/L (136-145); THYROID STIMULATING HORMONE 2.63 uIU/mL (0.36-3.74); TRIGLYCERIDES 72 mg/dL (15-150); UREA NITROGEN, BLOOD 16 mg/dL (7-18)
[2019-05-26 09:47] LABS: GLOMERULAR FILTR. RATE CALC > 60 mL/min (>60)
[2019-05-26 10:08] LABS: CHOL/HDL RATIO 3.2 (3.9-5.7); CHOLESTEROL 146 mg/dL (131-200)
[2019-05-26] MEDS: PRIMIDONE 50 MG TABLET PO SCH (10:46)
[2019-05-26] MEDS: TraMADol HCL 50 MG TABLET PO SCH ×2 (10:47→21:00)
[2019-05-26] MEDS: CARBIDOPA/LEVODOPA 25-100 MG TABLET PO SCH ×3 (10:47→20:15)
[2019-05-26] MEDS: MULTIVITAMINS WITH MINERALS, THERAPEUTIC TABLET PO SCH (12:09)
[2019-05-26] MEDS: MORPHINE SULFATE 4 MG/ML SYRINGE IVP PRN ×2 (12:10→18:59)
[2019-05-26] MEDS: OxyCODONE HCL/ACETAMINOPHEN 5-325 MG TABLET PO PRN (15:08)
[2019-05-26] MEDS: MONTELUKAST SODIUM 10 MG TABLET PO SCH (20:15)
[2019-05-27 00:47] VITALS: BP 130/72
[2019-05-27] MEDS: MORPHINE SULFATE 4 MG/ML SYRINGE IVP PRN ×2 (04:00→21:16)
[2019-05-27 04:33] VITALS: BP 132/68
[2019-05-27 07:26] LABS: BASOPHILS % (AUTO) 0.7 % (0.0-2.0); EOSINOPHILS % (AUTO) 2.2 % (1.0-6.0); HEMATOCRIT 27.6 % (36-46); HEMOGLOBIN 8.7 g/dL (12.0-16.0); LYMPHOCYTES # (AUTO) 1.8 K/uL (1.0-4.8); LYMPHOCYTES % (AUTO) 37.4 % (22.0-44.0); MEAN CORPUSCULAR HEMOGLOBIN 26.8 pg (26.0-34.0); MEAN CORPUSCULAR HGB CONC 31.7 G/dL (31.0-37.0); MEAN CORPUSCULAR VOLUME 85 fL (80-100); MONOCYTES # (AUTO) 0.4 K/uL (0.1-1.0); MONOCYTES % (AUTO) 7.9 % (2.0-9.0); NEUTROPHILS # (AUTO) 2.5 K/uL (1.8-7.7); NEUTROPHILS % (AUTO) 51.8 % (40.0-70.0); PLATELET COUNT (AUTO) 367 K/uL (150-450); RED BLOOD CELL COUNT(AUTO) 3.26 MIL/uL (4.00-5.20); RED CELL DISTRIBUTION WIDTH 18.9 % (11.5-14.5)
[2019-05-27 07:41] LABS: ALANINE AMINOTRANSFERASE 9 U/L (12-78); ALBUMIN 2.3 g/dL (3.4-5.0); ALKALINE PHOSPHATASE 114 U/L (46-116); ANION GAP 7 mmol/L (8-16); ASPARTATE AMINOTRANSFERASE 17 U/L (15-37); BILIRUBIN,TOTAL 0.3 mg/dL (0.1-1.0); CALCIUM, TOTAL 8.7 mg/dL (8.8-10.5); CARBON DIOXIDE 27 mmol/L (22-29); CHLORIDE 105 mmol/L (98-107); CREATININE 0.78 mg/dL (0.60-1.30); GLOMERULAR FILTR. RATE CALC > 60 mL/min (>60); GLUCOSE,RANDOM 118 mg/dL (70-110); PHOSPHORUS 3.4 mg/dL (2.5-4.9); SODIUM SERUM 139 mmol/L (136-145); TOTAL PROTEIN, SERUM 8.2 g/dL (6.4-8.2); UREA NITROGEN, BLOOD 17 mg/dL (7-18)
[2019-05-27 07:59] VITALS: BP 137/98
[2019-05-27] MEDS: PRIMIDONE 50 MG TABLET PO SCH (08:21)
[2019-05-27] MEDS: FERROUS SULFATE 325 MG EC TABLET PO SCH (08:21)
[2019-05-27] MEDS: FAMOTIDINE 20 MG TABLET PO SCH (08:21)
[2019-05-27] MEDS: CARBIDOPA/LEVODOPA 25-100 MG TABLET PO SCH ×3 (08:21→20:03)
[2019-05-27] MEDS: MULTIVITAMINS WITH MINERALS, THERAPEUTIC TABLET PO SCH (08:21)
[2019-05-27] MEDS: TraMADol HCL 50 MG TABLET PO SCH (08:46)
[2019-05-27 12:20] VITALS: BP 112/67
[2019-05-27 16:07] VITALS: BP 138/86
[2019-05-27] MEDS: OxyCODONE HCL/ACETAMINOPHEN 5-325 MG TABLET PO PRN ×2 (16:24→20:30)
[2019-05-27] MEDS: MONTELUKAST SODIUM 10 MG TABLET PO SCH (20:03)
[2019-05-27 20:10] VITALS: BP 142/86
[2019-05-28] MEDS: OxyCODONE HCL/ACETAMINOPHEN 5-325 MG TABLET PO PRN ×2 (03:12→09:31)
[2019-05-28 03:15] VITALS: BP 143/74
[2019-05-28] MEDS: CARBIDOPA/LEVODOPA 25-100 MG TABLET PO SCH (08:59)
[2019-05-28] MEDS: PRIMIDONE 50 MG TABLET PO SCH (08:59)
[2019-05-28] MEDS: FAMOTIDINE 20 MG TABLET PO SCH (09:00)
[2019-05-28] MEDS: FERROUS SULFATE 325 MG EC TABLET PO SCH (09:00)
[2019-05-28] MEDS: MULTIVITAMINS WITH MINERALS, THERAPEUTIC TABLET PO SCH (09:00)
[2019-05-28 09:17] VITALS: BP 147/78
[2019-05-28 15:41] VITALS: BP 132/78
== END 2019-05-28 16:00 | disposition home or self-care (01) | DRG 554 ==
LOC: EMS 14:35 → 5N 23:26 → UNDOADMIN 23:26 → 5N 05-26 00:06 → 5S 05-27 17:00
PROVIDERS: ADMIT Hospitalist; ATTEND Internal Medicine
DX: M17.12 Unilateral primary osteoarthritis, left knee (principal); E44.0 Moderate protein-calorie malnutrition; M19.90 Unspecified osteoarthritis, unspecified site; G20 Parkinson's disease; M81.0 Age-related osteoporosis without current pathological fracture; K21.9 Gastro-esophageal reflux disease without esophagitis; I10 Essential (primary) hypertension; D63.8 Anemia in other chronic diseases classified elsewhere; H91.90 Unspecified hearing loss, unspecified ear; M25.519 Pain in unspecified shoulder; Z68.21 Body mass index [BMI] 21.0-21.9, adult; Z03.818 Encounter for observation for suspected exposure to other biological agents ruled out
CPT/HCPCS: 71250; 82728; 83605; 83735; 84100; 84443; 86140; 87040; 87635; 87804; J2270; J7030